=== PATIENT | female | born 1965 | race Caucasian/White ===

== ENCOUNTER 2017-02-17 09:25 | Day surgery (SDC) | payer MEDICAID ==
[~2017-02-17 09:25] MED LIST: ACETAMINOPHEN 1,000 MG/100 ML BTL IV ONE
[2017-02-17] MEDS ORDERED: FENTANYL PF 100MCG/2ML VIAL IV ONE (14:34)
[2017-02-17] MEDS ORDERED: HYDROCODONE/APAP 7.5/325MG TABLET PO ONE (14:34)
[2017-02-17] MEDS ORDERED: LIDOCAINE 2% MDV (20MG/ML) 20ML VIAL IV ONE (14:57)
[2017-02-17] MEDS ORDERED: KETOROLAC 30 MG/ML VIAL IVP ONE (14:57)
[2017-02-17] MEDS ORDERED: PROPOFOL 10 MG/ML VIAL IV ONE (14:57)
[2017-02-17] MEDS ORDERED: SEVOFLURANE 250 ML INH ONE (14:57)
--- NOTE | 2017-02-21 12:50 | Operative Note ---
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 OPERATION: Excision of dorsal scapholunate ganglion of the left wrist using 3.5 loop magnification. DESCRIPTION OF PROCEDURE: This 51-year-old female was taken to the operating room, placed in the supine position on the operating room table where general anesthesia was induced. The left upper extremity was elevated. It was prepped with Hibiclens and draped in the usual sterile fashion. It was exsanguinated and the tourniquet inflated to 250 mmHg. The dome of the ganglion was easily identified at the dorsum of the wrist, and a treatment incision was made centering over the dome of the ganglion. Dissection was carried down through the skin and subcutaneous tissue. Length of the incision approximately 1 inch. The subcutaneous tissue was divided to expose the dome of the ganglion and it was circumferentially exposed by blunt and sharp dissection. The extensors were retracted both radially and ulnarly for excellent exposure. The joint capsule was then easily identified and the ganglion had expanded massively underneath the small dome that was present on the top and multiple lobules of ganglion were identified and sharply excised to excise the stalk from the dorsal scapholunate joint. This was then excised and hemostasis obtained with the electrocautery. A small portion of the tenosynovium from the joint capsule was also removed. This was a very small fragment and the wound copiously irrigated with lactated Ringer's solution. Once hemostasis had been obtained, the wound was closed, subcutaneous tissue with 4-0 Vicryl and the skin with a running 4-0 nylon suture. Sterile dressings with plaster splint immobilization were applied with the wrist in slight palmar flexion. The patient was taken to the recovery room in satisfactory condition. GROSS PATHOLOGY: This patient demonstrated a dorsal scapholunate ganglion on the left wrist which was emanating from the scapholunate joint and had been previously ruptured by hitting it with a book and it had formed multiple lobules of this cyst underneath the retinaculum, within it was very expansive. The small dome present on the surface was seen to be approximately 1/4 of what was seen deeper in the deeper tissues. CHRISTINAD
== END 2017-02-17 12:08 | disposition home or self-care (01) ==
LOC: SUR 09:25
PROVIDERS: ATTEND Orthopaedic Surgery
DX: M67.432 Ganglion, left wrist (principal); E78.00 Pure hypercholesterolemia, unspecified
CPT/HCPCS: 25111; 01810; J1885; J3010

== ENCOUNTER 2017-03-03 08:20 | Day surgery (SDC) | payer MEDICAID ==
[2017-03-03] MEDS ORDERED: PROPOFOL 10 MG/ML VIAL IV ONE (16:09)
[2017-03-03] MEDS ORDERED: MIDAZOLAM HCL 2MG/2ML VIAL IV ONE (16:09)
[2017-03-03] MEDS ORDERED: LIDOCAINE 2% MDV (20MG/ML) 20ML VIAL IV ONE (16:09)
--- NOTE | 2017-03-09 10:20 | Operative Note ---
DATE OF SURGERY: 03/03/2017 REFERRING PROVIDER: YOLANDA Hudson/Tristan Heath DO PREOPERATIVE DIAGNOSIS: Hematochezia and hemorrhoids. POSTOPERATIVE DIAGNOSIS: Poor prep. Otherwise, normal exam. OPERATION: COLONOSCOPY. PROCEDURE: After informed consent was obtained, the patient was placed in the left lateral decubitus position in the endoscopy suite, sedated and monitored by the Department of Anesthesia. Digital rectal exam was unremarkable. A well-lubricated PCF-180 colonoscope was inserted into the rectum. There was difficulty intubating the ascending colon and cecum. Transabdominal pressure was required, as was reducing any sigmoid and colonic looping. Ultimately, the cecal cap was intubated, and was unremarkable. The preparation quality was poor, as there was liquid and semi-particulate stool throughout the colon, which was lavaged and attempted to be aspirated. The portions of the colon were not readily inspected due to the preparation quality. No polyps were seen. Forward and J-turn views of the rectum and anorectum were unremarkable. The endoscope was straightened, the rectal ampulla deflated and the endoscope was removed. RECOMMENDATIONS: Patient should undergo repeat exam in 1 year. She should followed up with Dr. Heath as needed. As always, thank you for allowing me to participate in the health care of your patients. CC: YOLANDA Hudson DO [facility]
== END 2017-03-03 10:15 | disposition home or self-care (01) ==
LOC: HOP 08:20
PROVIDERS: ATTEND Internal Medicine Gastroenterology
DX: K92.1 Melena (principal)
CPT/HCPCS: 00810; G0121

== ENCOUNTER 2019-05-05 16:24 | Emergency (ER) | payer MEDICAID ==
[2019-05-05] MEDS ORDERED: CEFAZOLIN 2 Gram 2 GM/50 ML BAG IVPB ONE (16:34)
[2019-05-05] MEDS ORDERED: Diph,Pert(Acell),Tet Vac 0.5 ML SYR IM ONE (16:34)
[2019-05-05] MEDS ORDERED: HYDROMORPHONE HCL 2 MG/ML VIAL IVP ONE ×2 (16:44→17:34)
[2019-05-05] MEDS ORDERED: ONDANSETRON HCL IV 4 MG/2 ML VIAL IVP ONE (16:44)
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
--- NOTE | 2019-05-05 17:43 | RADIOLOGY REPORT ---
EXAMINATION: Right Thumb, Minimum Two Views EXAM DATE: 05/05/2019 5:25 PM TECHNIQUE: PA, lateral, and oblique views INDICATION: trauma COMPARISON: None ENCOUNTER: Initial FINDINGS: Multiple punctate bony ossicles are present within the interphalangeal joint of the thumb. No fractur e identified. Prominent sesamoid is noted on anterior posterior view of the thumb. Soft tissue lacera tion is located along the lateral aspect of the proximal thumb. IMPRESSION: No evidence of fracture. Mild arthritic changes interphalangeal joint of the thumb. Soft tissue lacer ation. Dictated by: Minor Castellon MD on 05/05/2019 5:40 PM. .
[2019-05-05] MEDS ORDERED: HYDROCODONE/APAP 5/325MG TABLET PO ONE (18:43)
== END 2019-05-05 18:58 | disposition home or self-care (01) ==
LOC: ER 16:24
DX: S66.021A Laceration of long flexor muscle, fascia and tendon of right thumb at wrist and hand level, initial encounter (principal); S61.011A Laceration without foreign body of right thumb without damage to nail, initial encounter; S61.411A Laceration without foreign body of right hand, initial encounter; W31.2XXA Contact with powered woodworking and forming machines, initial encounter; Y92.007 Garden or yard of unspecified non-institutional (private) residence as the place of occurrence of the external cause
CPT/HCPCS: 12002 ×2; 99284 ×2; 96376; 96372; 96365; 96375; 73140; J2405; J1170; J0690; 90715